=== PATIENT | female | born 1965 | race Caucasian/White ===

== ENCOUNTER 2016-03-29 08:38 | Emergency (ER) | payer MEDICAID, OTHER ==
[~2016-03-29] VITALS: Ht 167.6 cm; Wt 77.1 kg
[2016-03-29 08:49] VITALS: BP 140/75
--- NOTE | 2016-03-29 08:55 | NUR ---
Patient ambulated to bed 8.
--- NOTE | 2016-03-29 09:00 | NUR ---
PATIENT PRESENTS TO ED WITH LUQ PAIN X1 DAY, WORSENS UPON INSPIRATION, TOOK MOTRIN YESTERDYA WITH MINIMAL RELIEF . DENIES N/V/D; SKIN IS PINK/WARM/DRY; AAOX4 WITH EVEN AND STEADY GAIT; LUNGS CLEAR BL; HR EVEN AND REGULAR; PT DENIES ANY FEVER, CP, SOB, OR COUGH AT THIS TIME; PATIENT STATES PAIN OF 9/10 AT THIS TIME; VSS; PATIENT POSITIONED FOR COMFORT; HOB ELEVATED; BEDRAILS UP X2; BED DOWN. ER MD MADE AWARE OF PT STATUS.
--- NOTE | 2016-03-29 09:04 | NUR ---
Dr. Duarte evaluating patient at bedside.
[2016-03-29] MEDS ORDERED: ALUMINUM HYD/MAG/SIMETHICONE 30 ML, BELLADONNA/PHENOBARBITAL 10 ML, LIDOCAINE VISCOUS 2... PO ONE ×2 (09:10)
[2016-03-29 09:53] VITALS: BP 133/70
== END 2016-03-29 09:52 | disposition home or self-care (01) ==
LOC: MED 08:38
DX: R10.12 Left upper quadrant pain (principal)

== ENCOUNTER 2017-10-12 07:51 | Emergency (ER) | payer OTHER ==
[~2017-10-12] VITALS: Ht 167.6 cm; Wt 70.3 kg
[2017-10-12 07:52] VITALS: BP 122/62
--- NOTE | 2017-10-12 07:58 | NUR ---
PT AMBULATES TO BED 11
--- NOTE | 2017-10-12 08:19 | NUR ---
52 Y.O FEMALE BIB FOR PAIN TO THE NECK, SHOULDERS AND UPPER CHEST. SHE IS UNABLE TO MOVE NECK FREELY WITHOUT EXCESSIVE PAIN (/10), PAIN HAS OCCURED FOR 2 WEEKS. PT STATES ABOUT 3 YEARS AGO SHE WENT THROUGH THIS SAME PAIN, SHE WENT TO THE ED AT THE TIME AND THE DRVeronique SAID IT WAS DUE TO TENSION AND STRESS. PT DENIES ALL HX AND OTHER COMPLICATIONS. PT STATES SHE BELIEVES SHE IS OTHER [place] HEALTHY. THE PAIN HAS GOTTEN WORSE IN THE PAST 2 DAYS, THE PAIN IS WORSE IN THE MORNING AND THE NIGHT, THIS MORNING IT WOKE HER FROM HER SLEEP. PAIN ON PALPATION, NO VISIABLE SWELLING, SLIGHT REDDNESS ON LEFT SIDE OF NECK.
[2017-10-12] MEDS ORDERED: KETOROLAC 60 MG/2 ML VIAL IM ONE (08:45)
[2017-10-12] MEDS ORDERED: LORazepam 2 MG/ML VIAL IM ONE (08:45)
[2017-10-12 09:06] LABS: BARBITURATE, URINE NEG. ng/ml (NEG <=200); BENZODIAZEPINE, URINE NEG. ng/mL (NEG <=200); CANNABINOID, URINE NEG. ng/mL (NEG <=50); COCAINE, URINE NEG. ng/mL (NEG <=300); OPIATE, URINE NEG. ng/mL (NEG <=2000); PHENCYCLIDINE SCREEN,URINE NEG. ng/mL (NEG <=25)
[2017-10-12 10:25] VITALS: BP 122/62
--- NOTE | 2017-10-12 10:30 | NUR ---
PT DISCHAGED HOME WITH NIECE. PAIN HAS REDUCED TO A 5/10 AND PT STATES SHE IS VERY RELAXED AND FEELS BETTER. PT EDUCATION WAS REVIEWED AND ALL QUESTIONS ANSWERED.
== END 2017-10-12 10:30 | disposition home or self-care (01) ==
LOC: MED 07:51
DX: M43.6 Torticollis (principal); M47.892 Other spondylosis, cervical region; J45.909 Unspecified asthma, uncomplicated
CPT/HCPCS: 72040; 80305; 81002; 81025; 96372; 99285; J1885; J2060

== ENCOUNTER 2018-08-30 14:01 | Emergency (ER) | payer OTHER ==
[~2018-08-30] VITALS: Ht 167.6 cm; Wt 68.0 kg
[2018-08-30 14:12] VITALS: BP 128/69
--- NOTE | 2018-08-30 14:12 | NUR ---
Patient ambulated to bed 4. RN evaluating patient at bedside.
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
--- NOTE | 2018-08-30 15:00 | NUR ---
ERMD EVALUATING PT AT BEDSIDE
[2018-08-30] MEDS ORDERED: HYDROcodone/APAP 5/325 MG 1 TAB TAB PO ONE (15:05)
[2018-08-30] MEDS ORDERED: IBUPROFEN 800 MG TAB PO ONE (15:05)
[2018-08-30 16:04] VITALS: BP 128/69
--- NOTE | 2018-08-30 16:05 | NUR ---
Patient discharged with v/s stable. Written and verbal after care instructions given and explained. Patient alert, oriented and verbalized understanding of instructions. Ambulatory with steady gait. All questions addressed prior to discharge. ID band removed. Patient advised to follow up with PMD. Rx of NORCO AND IBUPROFEN given. Patient educated on indication of medication including possible reaction and side effects. Opportunity to ask questions provided and answered.
== END 2018-08-30 16:00 | disposition home or self-care (01) ==
LOC: MED 14:01
DX: M54.32 Sciatica, left side (principal); M25.552 Pain in left hip; J45.909 Unspecified asthma, uncomplicated
CPT/HCPCS: 81025; 99283

== ENCOUNTER 2019-01-26 15:44 | Emergency (ER) | payer OTHER ==
[~2019-01-26] VITALS: Ht 167.6 cm; Wt 77.1 kg
[2019-01-26 15:53] VITALS: BP 143/73
--- NOTE | 2019-01-26 16:00 | NUR ---
Note [email or web address] in EDM - 01/26/19 at 1600 by MARY ALEXIS CORLEY. SENT TO LOBBY WITH PARENT, AWAITING BED IN ED. VSS.
--- NOTE | 2019-01-26 16:00 | NUR ---
ALEXIS CORLEY. SENT TO LOB, AWAITING BED IN ED. VSS.
--- NOTE | 2019-01-26 18:50 | NUR ---
PATIENT LEFT WITHOUT BEING SEEN BY DR. NÚÑEZ. NO FURTHER CARE PROVIDED FOR PATIENT.
== END 2019-01-26 18:50 | disposition left against medical advice (07) ==
LOC: MED 15:44
DX: R00.2 Palpitations (principal); Z53.21 Procedure and treatment not carried out due to patient leaving prior to being seen by health care provider
CPT/HCPCS: 93005

== ENCOUNTER 2020-05-21 07:30 | Inpatient (IN) | payer OTHER, SELFPAY ==
[~2020-05-21] VITALS: Ht 167.6 cm; Wt 71.7 kg
[2020-05-21 07:33] VITALS: BP 121/81
--- NOTE | 2020-05-21 07:45 | NUR ---
PT AMBULATED TO BED 10.
--- NOTE | 2020-05-21 07:50 | NUR ---
X-RAY AT BEDSIDE.
--- NOTE | 2020-05-21 08:04 | NUR ---
ERMD AT BEDSIDE.
--- NOTE | 2020-05-21 08:20 | NUR ---
54 YEAR OLD FEMALE COMPLAINS OF SOB AND NONRADIATING CP X 2 MONTHS. PT LUNGS CLEAR BL, SPO2 89% ON RA. PT PLACED ON 4L NC, O2 SATURATION 96%. PT DENIES N/V/D. RR 20. PT AOX4, BREATHING EVEN AND UNLABORED, SKIN WARM AND DRY. BED IN LOWEST POSITION, LOCKED, BED RAIL UPX1. PMH - ASTHMA ALLERGIES - NKA
[2020-05-21 08:51] LABS: BASOPHILS % (AUTO) 0.4 % (0.0-2.0); EOSINOPHILS # (AUTO) 0.3 K/uL (0-0.4); EOSINOPHILS % (AUTO) 3.5 % (0.0-4.0); HEMATOCRIT 43.7 % (36-48); HEMOGLOBIN 14.5 g/dL (12.0-16.0); LYMPHOCYTES # (AUTO) 1.9 K/uL (2.5-16.5); LYMPHOCYTES % (AUTO) 24.2 % (20.5-51.1); MEAN CORPUSCULAR HEMOGLOBIN 28 pg (27-31); MEAN CORPUSCULAR HGB CONC 33 g/dL (33-37); MEAN CORPUSCULAR VOLUME 85.5 fL (80-94); MONOCYTES # (AUTO) 0.5 K/uL (0.8-1.0); MONOCYTES % (AUTO) 6.5 % (1.7-9.3); NEUTROPHILS % (AUTO) 65.4 % (42.2-75.2); PLATELET COUNT (AUTO) 372 K/uL (140-450); RED BLOOD CELL COUNT(AUTO) 5.11 MIL/uL (4.20-5.40); RED CELL DISTRIBUTION WIDTH 15.1 % (11.6-13.7); WHITE BLOOD COUNT (AUTO) 7.7 K/uL (4.8-10.8)
[2020-05-21] MEDS ORDERED: ALBU0.0912 INH (08:53)
[2020-05-21 09:11] LABS: PROTHROMBIN TIME 9.8 secs (10.8-13.4)
[2020-05-21 09:13] LABS: ALBUMIN 3.9 g/dL (3.4-5.0); CARBON DIOXIDE 27.8 mmol/L (21-32); CREATININE 0.7 mg/dL (0.6-1.3); POTASSIUM 3.8 mmol/L (3.5-5.1); TOTAL BILIRUBIN 0.3 mg/dL (0.0-1.0)
[2020-05-21 09:17] LABS: APPEARANCE,URINE SL CLOUDY (CLEAR); BILIRUBIN,URINE NEGATIVE (NEGATIVE); BLOOD, URINE TRACE-I (NEGATIVE); COLOR,URINE YELLOW (YELLOW); LEUKOCYTE ESTERASE ,URINE 1+ (NEGATIVE); NITRITE, URINE NEGATIVE (NEGATIVE); UGLUCOSE NEGATIVE (NEGATIVE)
[2020-05-21 09:22] LABS: D-DIMER < 100 ng/ml (0-400)
[2020-05-21 09:34] LABS: RBC,URINE 0-5 /HPF (0-5)
[2020-05-21 09:37] LABS: BARBITURATE, URINE NEGATIVE ng/ml (NEG <=200); BENZODIAZEPINE, URINE NEGATIVE ng/mL (NEG <=200); CANNABINOID, URINE NEGATIVE ng/mL (NEG <=50); COCAINE, URINE NEGATIVE ng/mL (NEG <=300); OPIATE, URINE NEGATIVE ng/mL (NEG <=2000); PHENCYCLIDINE SCREEN,URINE NEGATIVE ng/mL (NEG <=25)
--- NOTE | 2020-05-21 11:00 | NUR ---
PT ALERT AND AWAKE, BREATHING EVEN AND LABORED. SPO2 92% ON 4L.
[2020-05-21] MEDS ORDERED: AZITHROMYCIN 500 MG in DEXTROSE 5% 250 ML IV ONE (11:10)
--- NOTE | 2020-05-21 11:10 | NUR ---
KAVON SWAB COLLECTED AND SENT TO LAB.
[2020-05-21] MEDS ORDERED: cefTRIAXone 1,000 MG VIAL ONE (11:21)
--- NOTE | 2020-05-21 11:47 | NUR ---
NOVEL COVID SWAB SENT TO LAB
[2020-05-21] MEDS ORDERED: AZITHROMYCIN 500 MG INJ VIAL IV ONE (11:51)
--- NOTE | 2020-05-21 12:19 | NUR ---
PT ALERT AND AWAKE, BREATHING EVEN AND LABORED. SPO2 90% ON 4L.
--- NOTE | 2020-05-21 13:43 | NUR ---
PT ALERT AND AWAKE, BREATHING EVEN AND LABORED. SPO2 92% ON 4L.
[2020-05-21] MEDS ORDERED: HYDROCORTISONE 1% CRM 30 GM TUBE TP SCH (15:30)
[2020-05-21] MEDS ORDERED: MORPHINE SULFATE 2 MG/ML SYR IVP PRN (16:10)
[2020-05-21] MEDS ORDERED: ONDANSETRON 4 MG/2 ML VIAL IVP PRN (16:10)
[2020-05-21] MEDS ORDERED: ACETAMINOPHEN 325 MG TAB PO PRN (16:10)
--- NOTE | 2020-05-21 16:30 | NUR ---
PT ALERT AND AWAKE, BREATHING EVEN AND LABORED. SPO2 91% ON 4L.
[2020-05-21] MEDS: LEVOFLOXACIN 500 MG/D5W PREMIX 100 ML IV SCH (16:49)
--- NOTE | 2020-05-21 17:10 | NUR ---
PAGED ADMITTING DOCTOR ABOUT PT REQUEST FOR INHALER, STATES HAVING SOME CHEST TIGHTNESS
--- NOTE | 2020-05-21 17:54 | NUR ---
Patient will be admitted to care of Dr Reed. Admited to Tele. Will go to room 118. Belongings list completed. Report to Gaviota MURO.
--- NOTE | 2020-05-21 17:55 | NUR ---
REPORT RECEIVED FROM ER NURSE. AWAITING PT'S ARRIVAL
--- NOTE | 2020-05-21 18:10 | NUR ---
PT ARRIVED ON UNIT. PT EDUCATED ABOUT UNIT RULES AND PROTOCOLS. PT ORIENTED TO ROOM, BED CONTROLS, AND HOW TO REACH NURSE FOR ASSISTANCE. MRSA SWAB COLLECTED. PT PLACED ON ENHANCED CONTACT PRECAUTIONS.
--- NOTE | 2020-05-21 18:20 | NUR ---
PT COMPLAINS OF PAIN 8/10 ON UPPER ABDOMEN. SHE STATES SHE HAD GALL STONES BUT NEVER GOT THEM REMOVED AND CLAIMS THE BADOMEN PRESSURE IS WHAT MAKES HER HAVE SOB.
--- NOTE | 2020-05-21 18:26 | NUR ---
PRN MEDICATION GIVEN FOR PAIN MANAGEMENT. DISTRACTION AND MEDITATION WERE UNSUCCESSFUL. MEDICATIONS GIVEN PER MD ORDER. PT EDUCATED. PT VERBALIZED UNDERSTANDING. PT TOLERATED WELL. NO S/S OF DISTRESS AT THIS TIME. CALL LIGHT IS WITHIN REACH. ALL SAFETY MEASURES ARE IN PLACE. WILL CONTINUE TO MONITOR.
[2020-05-21 18:35] VITALS: BP 115/63
--- NOTE | 2020-05-21 18:48 | NUR ---
PT IS SITTING AT EDGE OF BED EATING DINNER REASSESSED FOR PAIN . PT STATES 0/10 PAIN AT THIS TIME. BLANKETS WERE GIVEN PER REQUEST. WILL ENDORSE TO ANALYTICAL ENGINEER FOR CONTINUITY OF CARE.
--- NOTE | 2020-05-21 19:30 | NUR ---
RECEIVED BEDSIDE ENDORSEMENT FROM AM SHIFT RN. PT IS AAOX4, ON 4L NC, O2 SAT WNL, SAFETY MEASURES IN PLACE. ISO PRECAUTION IN PLACE. PLAN OF CARE DISCUSSED, CALL LIGHT WITHIN REACH.
[2020-05-21 20:00] VITALS: BP 118/72
[2020-05-21] MEDS: ASPIRIN 81 MG TAB.CHEW PO SCH (20:40)
[2020-05-21] MEDS ORDERED: NITROGLYCERIN 0.4 MG TAB SL PRN (20:40)
[2020-05-21] MEDS ORDERED: ALUMINUM HYD/MAG/SIMETHICONE 30 ML UDC PO PRN (20:40)
[2020-05-21] MEDS ORDERED: ASPIRIN 81 MG TAB.CHEW PO SCH (20:40)
--- NOTE | 2020-05-21 21:10 | NUR ---
ASPIRIN 81MG PO GIVEN ORDERED, TOLERATED WELL.
--- NOTE | 2020-05-21 22:06 | NUR ---
MAALOX PO GIVEN ONCE PRN FOR GI UPSET, TOLERATED WELL. WILL CONTINUE TO MONITOR.
[2020-05-22] VITALS: BP 110/69
--- NOTE | 2020-05-22 | NUR ---
V/S TAKEN AND RECORDED, KEPT COMFORTABLE, CALL LIGHT WITHIN REACH.
--- NOTE | 2020-05-22 02:00 | NUR ---
ASLEEP, RESPIRATION EVEN AND UNLABORED, NO SOB, NO DISTRESS, CALL LIGHT WITHIN REACH.
[2020-05-22 04:00] VITALS: BP 93/55
--- NOTE | 2020-05-22 05:00 | NUR ---
CHECKED PT, KEPT WARM AND COMFORTABLE, CALL LIGHT WITHIN REACH.
[2020-05-22 06:39] LABS: BASOPHILS % (AUTO) 0.4 % (0.0-2.0); EOSINOPHILS # (AUTO) 0.3 K/uL (0-0.4); EOSINOPHILS % (AUTO) 4.6 % (0.0-4.0); HEMATOCRIT 42.4 % (36-48); HEMOGLOBIN 14.1 g/dL (12.0-16.0); LYMPHOCYTES # (AUTO) 1.9 K/uL (2.5-16.5); LYMPHOCYTES % (AUTO) 25.1 % (20.5-51.1); MEAN CORPUSCULAR HEMOGLOBIN 29 pg (27-31); MEAN CORPUSCULAR HGB CONC 33 g/dL (33-37); MEAN CORPUSCULAR VOLUME 86.2 fL (80-94); MONOCYTES # (AUTO) 0.4 K/uL (0.8-1.0); MONOCYTES % (AUTO) 5.5 % (1.7-9.3); NEUTROPHILS # (AUTO) 4.9 K/uL (1.8-7.7); NEUTROPHILS % (AUTO) 64.4 % (42.2-75.2); PLATELET COUNT (AUTO) 326 K/uL (140-450); RED BLOOD CELL COUNT(AUTO) 4.92 MIL/uL (4.20-5.40); RED CELL DISTRIBUTION WIDTH 15.4 % (11.6-13.7); WHITE BLOOD COUNT (AUTO) 7.6 K/uL (4.8-10.8)
[2020-05-22 06:59] LABS: CARBON DIOXIDE 26.8 mmol/L (21-32); CREATININE 0.8 mg/dL (0.6-1.3); POTASSIUM 3.8 mmol/L (3.5-5.1)
--- NOTE | 2020-05-22 07:38 | NUR ---
RECEIVED REPORT FROM NIGHT NURSE FOR CONTINUITY OF CARE. PT IS ON 4L NC. PT HAS LAC 20G SALINE LOCK, PT ON PUI PRECAUTIONS FOR COVID. SAFETY MEASURES IN PLACE, WILL CONTINUE TO MONITOR.
--- NOTE | 2020-05-22 07:38 | NUR ---
PT STABLE, NO DISTRESS, ALL NEEDS ATTENDED, KEPT COMFORTABLE, BEDSIDE ENDORSEMENT GIVEN TO AM SHIFT RN.
[2020-05-22 08:00] VITALS: BP 102/63
[2020-05-22] MEDS: ASPIRIN 81 MG TAB.CHEW PO SCH (09:32)
--- NOTE | 2020-05-22 09:36 | NUR ---
ADMINISTERED SCHEDULED MEDICATION, MEDICATION EDUCATION PROVIDED. PT TOLERATED WELL. INCREASED O2 TO 4L NC, PT STATING 89. NOTIFIED RT. WILL CONTINUE TO MONITOR
[2020-05-22] MEDS ORDERED: ALBU0.0912 INH (09:52)
--- NOTE | 2020-05-22 11:28 | NUR ---
ROUNDING ON PT. PT STABLE, PT SITTING IN BED. WILL CONTINUE TO MONITOR.
[2020-05-22 12:00] VITALS: BP 100/61
--- NOTE | 2020-05-22 13:40 | NUR ---
PT SITTING IN BED, PT IS STABLE, WILL CONTINUE TO MONITOR
--- NOTE | 2020-05-22 15:00 | NUR ---
PT RESTING IN BED, NO SIGNS OF DISTRESS NOTED, CALL LIGHT WITHIN REACH, WILL CONTINUE TO MONITOR
[2020-05-22 16:00] VITALS: BP 104/72
[2020-05-22] MEDS: LEVOFLOXACIN 500 MG/D5W PREMIX 100 ML IV SCH (16:55)
--- NOTE | 2020-05-22 17:00 | NUR ---
ADMINISTERED SCHEDULED MEDICATION, MEDICATION EDUCATION PROVIDED. PT TOLERATED WELL. PT IS STABLE, WILL CONTINUE TO MONITOR.
--- NOTE | 2020-05-22 19:05 | NUR ---
ENDORSE PT TO NIGHT NURSE FOR CONTINUITY OF CARE.
--- NOTE | 2020-05-22 19:06 | NUR ---
RECEIVED BEDSIDE ENDORSEMENT FROM AM SHIFT RN. PT IS AOX4, ON ROOM AIR, NO DISTRESS, DENIES PAIN, PT IS IN THE RESTROOM, ISO PRECAUTION IN PLACE, SAFETY MEASURES IN PLACE, PLAN OF CARE DISCUSSED, CALL LIGHT WITHIN REACH.
--- NOTE | 2020-05-22 19:45 | NUR ---
PT AWAKE AND ALERT PLAYING ON PHONE. PT DENIES SOB AND REQUESTED TO GO HOME STATING SHE IS OK. PT CURRENTLY ON RA SPO2 93% HR 87 WILL CONTINUE TO MONITOR
[2020-05-22 20:00] VITALS: BP 103/65
--- NOTE | 2020-05-22 21:00 | NUR ---
PT WANTED TO GO HOME. I EXPLAINED THAT SHE IS NOT YET MEDICALLY CLEARED BY AND THAT THERE'S NO D/C ORDER YET, PT STILL INSISTED INSPITE OF EXPLAINING TO HER THE RISKS AND BENEFITS. PAGED DR. STANLEY TO INFORM. THEN, CHARGE NURSE TAHIR, TALK TO THE PATIENT AND HE EXPLAINED THE RISKS AND BENEFITS AND THAT THERE'S NO D/C ORDER. FINALLY, PT DECIDED TO STAY FOR THE NIGHT. ALSO DR. STANLEY CALLED BACK, INFORMED HIM OF WHAT HAPPENED.
[2020-05-22] MEDS: guaiFENesin 600 MG TABER PO PRN (22:17)
--- NOTE | 2020-05-22 22:20 | NUR ---
PT GIVEN MUCINEX PRN FOR COUGH ORDERED, PT REQUESTED. CALL LIGHT WITHIN REACH.
[2020-05-23] VITALS: BP 102/72
--- NOTE | 2020-05-23 | NUR ---
PT WATCHING TV. CHECKED V/S, KEPT COMFORTABLE, NO SOB, CALL LIGHT WITHIN REACH.
--- NOTE | 2020-05-23 02:02 | NUR ---
CHECKED PT, FIXED THE NASAL CANNULA ON PT'S FACE, KEPT COMFORTABLE, CALL LIGHT WITHIN REACH.
--- NOTE | 2020-05-23 03:31 | NUR ---
PT LYING ON HER LEFT SIDE, O2 SAT 98%-99%, ON 3L, CALL LIGHT WITHIN REACH.
[2020-05-23 04:00] VITALS: BP 129/73
--- NOTE | 2020-05-23 05:30 | NUR ---
CHECKED PT, ASLEEP, CHEST RISE NOTED, O2 SAT 92% ON 3L.
--- NOTE | 2020-05-23 06:22 | NUR ---
PT REFUSED EKG AT THIS TIME. PT STATED SHE WOULD LIKE A FEMALE TO PERFORM EKG.
--- NOTE | 2020-05-23 06:46 | NUR ---
PATIENT HAS BEEN SCREENED AND CATEGORIZED MODERATE NUTRITION RISK. PATIENT WILL BE SEEN WITHIN 3-5 DAYS OF ADMISSION. 05/24/20-05/26/20 MITA LOO MS, RDN
--- NOTE | 2020-05-23 07:04 | NUR ---
PT STABLE, NO DISTRESS, ALL NEEDS ATTENDED, KEPT COMFORTABLE, BEDSIDE ENDORSEMENT GIVEN TO AM SHIFT RN FOR CONTINUITY OF CARE.
--- NOTE | 2020-05-23 07:05 | NUR ---
RECEIVED REPORT FROM NIGHT NURSE FOR CONTINUITY OF CARE. PT IS ON 3L NC. PT HAS LAC 20G SALINE LOCK. PT ASLEEP, NO SIGNS OF DISTRESS NOTED. PT ON PUI PRECAUTIONS FOR COVID. SAFETY MEASURES IN PLACE, WILL CONTINUE TO MONITOR.
[2020-05-23 08:00] VITALS: BP 118/63
[2020-05-23] MEDS: ASPIRIN 81 MG TAB.CHEW PO SCH (08:23)
[2020-05-23] MEDS: guaiFENesin 600 MG TABER PO PRN (08:24)
--- NOTE | 2020-05-23 08:30 | NUR ---
ADMINISTERED SCHEDULED MEDICATION, MEDICATION EDUCATION PROVIDED. ADMINISTERED MUCINEX FOR COUGH. PT TOLERATED WELL. PT IS STABLE, WILL CONTINUE TO MONITOR.
[2020-05-23] MEDS ORDERED: predniSONE 20 MG TAB PO SCH (09:00)
--- NOTE | 2020-05-23 11:17 | NUR ---
NOTIFIED DR STANLEY PT IS COMPLAINING OF STOMACH ACHE, RECEIVED TORB FOR KUB OF ABDOMEN, WILL INPUT ORDER.
--- NOTE | 2020-05-23 11:25 | NUR ---
PT SITTING IN THE BED, TALKING ON HER CELLPHONE. NO SIGNS OF DISTRESS NOTED, WILL CONTINUE TO MONITOR.
[2020-05-23 12:00] VITALS: BP 104/51
--- NOTE | 2020-05-23 14:15 | NUR ---
PT WANTS TO LEAVE AMA. NOTIFIED DR STANLEY. PER DR STANLEY PT CAN LEAVE BUT WILL EXPERIENCE RESPIRATORY DISTRESS AND WILL NEED TO BE RE-ADMITTED. SPOKE WITH PT AND ASKED HER WHY SHE WANTED TO LEAVE. PT STATES SHE CAN'T SLEEP, INFORMED HER SHE CAN ASK FOR SLEEP AIDE. PT STATES SHE WANTS TO LEAVE AND WANTS TO LEAVE AMA. INFORMED PT WHAT DR STANLEY SAID. PT STATES SHE STILL WANTS TO LEAVE AND WANTS TO SIGN FORM. WILL PRINT OUT FORM AND HAVE HER SIGN.
--- NOTE | 2020-05-23 14:37 | NUR ---
PT SIGNED AMA FORM. REMOVED IV AND INTACT. PT AMA OUT OF THE HOSPITAL
== END 2020-05-23 14:36 | disposition left against medical advice (07) | DRG 145 ==
LOC: MED 07:30 → MTU 16:09
PROVIDERS: ADMIT Hospitalist; ATTEND Hospitalist
DX: J20.9 Acute bronchitis, unspecified (principal); J45.21 Mild intermittent asthma with (acute) exacerbation; Z20.822 Contact with and (suspected) exposure to COVID-19; R10.9 Unspecified abdominal pain; F15.10 Other stimulant abuse, uncomplicated; Q25.72 Congenital pulmonary arteriovenous malformation; Z79.899 Other long term (current) drug therapy; Z91.09 Other allergy status, other than to drugs and biological substances; Z86.16 Personal history of COVID-19; R09.02 Hypoxemia
CPT/HCPCS: 36415; 71045; 71275; 74018; 80048; 80053; 80305; 81001; 83605; 83690; 83880; 84484; 85025; 85379; 85610; 87040; 87081; 87086; 93005; 96365; 96367; 99291; J0456; J0696; J1956; J2270; J7060; J7512; Q9967; U0003

== ENCOUNTER 2020-05-25 13:19 | Emergency (ER) | payer OTHER, SELFPAY ==
[~2020-05-25] VITALS: Ht 167.6 cm; Wt 68.0 kg
[~2020-05-25 13:19] MED LIST: ALBU0.0912 INH
[2020-05-25 13:25] VITALS: BP 118/75
--- NOTE | 2020-05-25 13:38 | NUR ---
C/O 11/05 LEFT WRIST PAIN X 2 DAYS. DENIES TRAUMA. TOOK PAIN PILL 45 MINS AGO. PMH:ASTHMA
--- NOTE | 2020-05-25 13:47 | NUR ---
PT TAKEN TO X RAY VIA W/C, ACCOMPANIED BY WINCH RUNNER.
--- NOTE | 2020-05-25 14:03 | NUR ---
PT AMB TO BED 4
[2020-05-25] MEDS ORDERED: KETOROLAC 30 MG/ML VIAL IM ONE (14:25)
[2020-05-25] MEDS ORDERED: NAPR-1847 PO (15:51)
--- NOTE | 2020-05-25 15:52 | NUR ---
applied wrist brace to left wrist without any issues
[2020-05-25 16:07] VITALS: BP 137/79
--- NOTE | 2020-05-25 16:08 | NUR ---
Patient discharged with v/s stable. Written and verbal after care instructions ABOUT [facility] FOR ROUTINE CARE OF INJURIES AND WRSIT SPRAIN given and explained IN [place]. Patient alert, oriented and verbalized understanding of instructions. Ambulatory with steady gait. All questions addressed prior to discharge. ID band removed. Patient advised to follow up with PMD. Rx of NAPROXEN given. Patient educated on indication of medication including possible reaction and side effects. Opportunity to ask questions provided and answered.
== END 2020-05-25 16:08 | disposition home or self-care (01) ==
LOC: MED 13:19
DX: M25.532 Pain in left wrist (principal); J45.909 Unspecified asthma, uncomplicated; Z79.899 Other long term (current) drug therapy
CPT/HCPCS: 29125; 73110; 93971; 96372; 99284; J1885

== ENCOUNTER 2020-06-09 07:56 | Inpatient (IN) | payer OTHER, SELFPAY ==
[~2020-06-09] VITALS: Ht 167.6 cm; Wt 75.7 kg
[~2020-06-09 07:56] MED LIST changes: +NAPR-1847 PO
[2020-06-09 08:01] VITALS: BP 130/58
[2020-06-09] MEDS ORDERED: MAG SULF 2000 MG/WATER PREMIX 50 ML IV ONE (08:20)
[2020-06-09] MEDS ORDERED: ALBUTEROL SULFATE/IPRATROPIU 3 ML SOL IH ONE ×2 (08:20→08:50)
--- NOTE | 2020-06-09 08:29 | NUR ---
54 Y/O F BIB SELF FROM HOME, PATIENT PRESENTS TO ED WITH SOB, CHEST PAIN AND COUGH THAT STARTED WORSENING TODAY. PT STATES SHE TESTED POSITIVE FOR COVID IN JANUARY AND TESTED NEGATIVE IN APRIL, BUT SINCE THEN HAS BEEN HAVING SOB MORE FREQUENTLY. DENIES N/V/D; SKIN IS PINK/WARM/DRY; AAOX4 WITH EVEN AND STEADY GAIT; LUNGS WHEEZING BL; HR EVEN AND REGULAR; PATIENT STATES PAIN OF 8/10 AT THIS TIME; VSS; PATIENT POSITIONED FOR COMFORT; HOB ELEVATED; BEDRAILS UP X2; BED DOWN. ER MD MADE AWARE OF PT STATUS. PMH: ASTHMA NKA MED: ALBUTEROL DOSE 0300 AND 0600 06/09/20
--- NOTE | 2020-06-09 08:46 | NUR ---
LABS COLLECTED THROUGH IV 20G AND GIVEN TO PHONG
[2020-06-09] MEDS ORDERED: cefTRIAXone 1,000 MG VIAL ONE (08:49)
[2020-06-09 08:52] LABS: BASOPHILS % (AUTO) 0.6 % (0.0-2.0); EOSINOPHILS # (AUTO) 0.7 K/uL (0-0.4); EOSINOPHILS % (AUTO) 7.9 % (0.0-4.0); HEMATOCRIT 42.9 % (36-48); HEMOGLOBIN 14.3 g/dL (12.0-16.0); LYMPHOCYTES % (AUTO) 23.2 % (20.5-51.1); MEAN CORPUSCULAR HEMOGLOBIN 29 pg (27-31); MEAN CORPUSCULAR HGB CONC 33 g/dL (33-37); MEAN CORPUSCULAR VOLUME 85.3 fL (80-94); MONOCYTES # (AUTO) 0.4 K/uL (0.8-1.0); MONOCYTES % (AUTO) 4.7 % (1.7-9.3); NEUTROPHILS # (AUTO) 5.6 K/uL (1.8-7.7); NEUTROPHILS % (AUTO) 63.6 % (42.2-75.2); PLATELET COUNT (AUTO) 387 K/uL (140-450); RED BLOOD CELL COUNT(AUTO) 5.03 MIL/uL (4.20-5.40); RED CELL DISTRIBUTION WIDTH 14.9 % (11.6-13.7); WHITE BLOOD COUNT (AUTO) 8.7 K/uL (4.8-10.8)
[2020-06-09 08:59] LABS: ANION GAP 14.5 (8-16); CARBON DIOXIDE 24.4 mmol/L (21-32); CREATININE 0.7 mg/dL (0.6-1.3); POTASSIUM 3.9 mmol/L (3.5-5.1)
--- NOTE | 2020-06-09 08:59 | NUR ---
CEFTRIAXONE AND MAGNESIUM NOT TESTED FOR COMPATIBILITY, WILL WAIT UNTIL INFUSION FINISHES.
[2020-06-09 09:05] LABS: ALBUMIN 3.7 g/dL (3.4-5.0); TOTAL BILIRUBIN 0.5 mg/dL (0.0-1.0)
--- NOTE | 2020-06-09 09:39 | NUR ---
NOVEL, KAVON AND MRSA SWABS OBTAINED AND TAKEN TO LAB. DROPPED OFF WITH PHLEB AT [employer] GAME TECHNICIAN.
[2020-06-09] MEDS ORDERED: MORPHINE SULFATE 4 MG/ML SYR IVP PRN (10:25)
[2020-06-09] MEDS ORDERED: HYDROcodone/APAP 5/325 MG 1 TAB TAB PO PRN (10:25)
[2020-06-09] MEDS ORDERED: MAG SULF 2000 MG/WATER PREMIX 50 ML IV PRN (10:25)
[2020-06-09] MEDS ORDERED: ACETAMINOPHEN 325 MG TAB PO PRN (10:25)
[2020-06-09] MEDS ORDERED: ONDANSETRON 4 MG/2 ML VIAL IVP PRN (10:25)
[2020-06-09] MEDS ORDERED: POTASSIUM CHLORIDE 10 MEQ TABER PO PRN (10:25)
[2020-06-09] MEDS ORDERED: KCL 20 MEQ/WATER INJ PREMIX 200 ML IV PRN (10:25)
[2020-06-09] MEDS ORDERED: MAGNESIUM OXIDE 400 MG TAB PO PRN (10:25)
--- NOTE | 2020-06-09 10:37 | NUR ---
Patient will be admitted to care of SELAM RODRIGUEZ. Admited to TELEMETRY. Will go to room 114. Belongings list completed. Report to WILLIAM MURO.
--- NOTE | 2020-06-09 10:50 | NUR ---
RECEIVED REPORT FROM ER NURSE FOR CONTINUITY OF CARE. PATIENT ARRIVES UNIT BY CHRIS. AAOX4. ABLE TO MAKE NEEDS KNOWN. IV TO LEFT AC INFUSING MAG RIDER. RESPIRATORY EVEN UNLABORED WITH 2L OXYGEN VIA NC. PATIENT DENIES PAIN AT THIS TIME. SKIN INTACT, WARM TO TOUCH. ORIENTED PATIENT TO THE CALL LIGHT AND ROOM. MRSA NARES COLLECTED. SAFETY MEASURES IN PLACE, WILL CONTINUE TO MONITOR.
[2020-06-09] MEDS: NACL 0.9% 1,000 ML IV SCH ×2 (11:00→22:55)
[2020-06-09] MEDS: AZITHROMYCIN 500 MG in DEXTROSE 5% 250 ML IV SCH (11:47)
[2020-06-09] MEDS: methylPREDNISolone SS 40 MG/ML VIAL IVP SCH ×2 (11:55→17:30)
[2020-06-09] MEDS: ALBUTEROL SULFATE/IPRATROPIU 3 ML SOL IH SCH ×2 (13:59→19:33)
--- NOTE | 2020-06-09 14:00 | NUR ---
UA SPECIMEN COLLECTED AND DELIVERED TO LAB.
[2020-06-09 14:16] LABS: APPEARANCE,URINE CLEAR (CLEAR); BILIRUBIN,URINE NEGATIVE (NEGATIVE); BLOOD, URINE NEGATIVE (NEGATIVE); COLOR,URINE YELLOW (YELLOW); LEUKOCYTE ESTERASE ,URINE NEGATIVE (NEGATIVE); NITRITE, URINE NEGATIVE (NEGATIVE); UGLUCOSE NEGATIVE (NEGATIVE)
[2020-06-09 16:00] VITALS: BP 111/56
--- NOTE | 2020-06-09 17:30 | NUR ---
SOLU MEDROL GIVEN VIA IVP. PATIENT'S O2 SAT 94% WITH 2L OXYGEN VIA NC, HR 79. DENIES PAIN OR DISCOMFORT AT THIS TIME.
--- NOTE | 2020-06-09 19:28 | NUR ---
ENDORSED PATIENT TO SOFTWARE SYSTEMS ARCHITECT RN FOR CONTINUITY OF CARE. PATIENT IN STABLE CONDITION WITH 2L OXYGEN VIA NC.
--- NOTE | 2020-06-09 19:29 | NUR ---
RECEIVING PATIENT FROM AM NURSE FOR CONTINUITY OF CARE. PATIENT IS IN TELE MONITOR. A/A/O X4. RESPIRATORY EVEN AND UNLABORED, ON 2L OXYGEN VIA NC, O2 SAT 94%. NO SIGN OF DISTRESS NOTED. SKIN WARM, DRY, NON-DIAPHORETIC. IV ON LEFT AC 20G, IS INFUSING FLUID. PATIENT DENIES ANY PAIN OR DISCOMFORT. ABLE TO MAKE NEEDS KNOWN. PLAN OF CARE DISCUSSED. PRECAUTION IN PLACE. CALL LIGHT WITHIN REACH. WILL CONTINUE TO MONITOR.
[2020-06-09] MEDS: BUDESONIDE 0.5 MG/2 ML NEBU INH SCH (19:34)
--- NOTE | 2020-06-09 19:53 | NUR ---
PT TOLERATED TXS WELL- NO DISTRESS NOTED
[2020-06-09 20:00] VITALS: BP 127/77
--- NOTE | 2020-06-09 20:00 | NUR ---
VITAL SIGNS TAKEN BP 127/77, HR 93, TEMP 98.3, RR 18, O2 SAT 92%. PATIENT IS STABLE, DENIES ANY PAIN OR DISCOMFORT. CALL LIGHT WITHIN REACH. HOB ELEVATED. WILL CONTINUE TO MONITOR.
--- NOTE | 2020-06-09 22:00 | NUR ---
ROUND CHECK. PATIENT IS USING HER CELL PHONE IN BED. NO SIGN OF DISTRESS NOTED. CALL LIGHT WITHIN REACH. HOB ELEVATED. PRECAUTION IN PLACE. WILL CONTINUE TO MONITOR.
[2020-06-10] VITALS: BP 112/72
[2020-06-10] MEDS: methylPREDNISolone SS 40 MG/ML VIAL IVP SCH ×4 (00:09→17:38)
--- NOTE | 2020-06-10 00:09 | NUR ---
SCHEDULE MEDICATION GIVEN ORDERED. PATIENT TOLERATED WELL. NO SIGN OF DISTRESS NOTED. HOB ELEVATED. PRECAUTION IN PLACE. CALL LIGHT WITHIN REACH. WILL CONTINUE TO MONITOR.
--- NOTE | 2020-06-10 02:00 | NUR ---
ROUND CHECK. PATIENT IS SLEEPING, CHEST RISE AND FALL NOTED. NO SIGN OF RESPIRATORY DISTRESS. PRECAUTION IN PLACE. CALL LIGHT WITHIN REACH. WILL CONTINUE TO MONITOR.
[2020-06-10] MEDS: ALBUTEROL SULFATE/IPRATROPIU 3 ML SOL IH SCH ×4 (02:51→19:15)
[2020-06-10 04:00] VITALS: BP 121/69
--- NOTE | 2020-06-10 04:04 | NUR ---
PATIENT IS AWAKE, RESTING IN BED. NO SIGN OF DISTRESS NOTED. O2 SAT 93%. PRECAUTION IN PLACE. CALL LIGHT WITHIN REACH. WILL CONTINUE TO MONITOR.
--- NOTE | 2020-06-10 05:34 | NUR ---
SCHEDULE MEDICATION GIVEN ORDERED. EDUCATION GIVEN, PATIENT VERBALIZED UNDERSTANDING. NO RESPIRATORY DISTRESS NOTED. PRECAUTION IN PLACE. CALL LIGHT WITHIN REACH. WILL CONTINUE TO MONITOR.
--- NOTE | 2020-06-10 06:06 | NUR ---
WAREHOUSE GENERAL LABORER AT BEDSIDE FOR BLOOD DRAWN. PATIENT IS AWAKE, NO SIGN OF RESPIRATORY DISTRESS NOTED, O2 SAT 97% ON 2L OXYGEN VIA NC. WILL CONTINUE TO MONITOR.
[2020-06-10 06:36] LABS: HEMATOCRIT 41.5 % (36-48); HEMOGLOBIN 13.5 g/dL (12.0-16.0); LYMPHOCYTES # (AUTO) 0.8 K/uL (2.5-16.5); LYMPHOCYTES % (AUTO) 5.3 % (20.5-51.1); MEAN CORPUSCULAR HEMOGLOBIN 28 pg (27-31); MEAN CORPUSCULAR HGB CONC 33 g/dL (33-37); MEAN CORPUSCULAR VOLUME 86.1 fL (80-94); MONOCYTES # (AUTO) 0.2 K/uL (0.8-1.0); MONOCYTES % (AUTO) 1.1 % (1.7-9.3); NEUTROPHILS % (AUTO) 93.6 % (42.2-75.2); PLATELET COUNT (AUTO) 371 K/uL (140-450); RED BLOOD CELL COUNT(AUTO) 4.82 MIL/uL (4.20-5.40)
--- NOTE | 2020-06-10 07:13 | NUR ---
ENDORSED PATIENT TO AM NURSE FOR CONTINUITY OF CARE. PATIENT IS STABLE, NO SIGN OF DISTRESS NOTED.
--- NOTE | 2020-06-10 07:15 | NUR ---
RECEIVED PATIENT FROM NIGHT NURSE. PATIENT IN BED AWAKE, ALERT, AND ORIENTED X4. TALKING ON CELL PHONE. RESP EVEN AND UNLABORED ON 2L NC. DENIED OF PAIN AT THIS TIME. LAC 20G INFUSING NS 80ML/HR. PLAN OF CARE DISCUSSED, PATIENT VERBALIZED UNDERSTANDING. HOB ELEVATED. SAFETY MEASURES IN PLACE. WILL CONTINUE TO MONITOR.
[2020-06-10 07:19] LABS: ALBUMIN 3.6 g/dL (3.4-5.0); ANION GAP 11.8 (8-16); CARBON DIOXIDE 26.7 mmol/L (21-32); CREATININE 0.6 mg/dL (0.6-1.3); MAGNESIUM 2.2 mg/dL (1.8-2.4); POTASSIUM 4.5 mmol/L (3.5-5.1); TOTAL BILIRUBIN 0.3 mg/dL (0.0-1.0)
[2020-06-10] MEDS: BUDESONIDE 0.5 MG/2 ML NEBU INH SCH ×2 (07:28→20:18)
[2020-06-10 08:00] VITALS: BP 118/77
--- NOTE | 2020-06-10 09:05 | NUR ---
PATIENT HAS BEEN SCREENED AND CATEGORIZED LOW NUTRITION RISK. PATIENT WILL BE SEEN WITHIN 7 DAYS OF ADMISSION. 06/15/[address]
[2020-06-10] MEDS: DOCUSATE SODIUM 100 MG GELCAP PO SCH (09:19)
--- NOTE | 2020-06-10 09:30 | NUR ---
PATIENT SITTING UP IN BED WATCHING TV. MORNING ROUTINE MEDICATIONS GIVEN WITH TYLENOL FOR MILD HEADACHE. FLUIDS ENCOURAGED. RESP EVEN AND UNLABORED ON 4L NC, O2SAT 94%. LAC 20G INFUSING WELL. ABLE TO MAKE NEEDS KNOWN. AMBULATORY. PLAN OF CARE DISCUSSED, PATIENT VERBALIZED UNDERSTANDING. CALL LIGHT WITHIN REACH. WILL CONTINUE TO MONITOR.
--- NOTE | 2020-06-10 10:59 | NUR ---
DC PLANNIN YRS OLD FEMALE PATIENT WAS ADMITTED FROM HOME WITH A DX OF ASTHMA EXACERBATION. PT HAS A HX OF METH USE. CXR SHOWED NO RADIOGRAPHICALLY ACUTE CARDIOPULMONARY DISEASE. RAPID COVID TEST NEGATIVE PCR IS PENDING. ON O2 4L/NC SATING 94 % ADMINISTER IVF, IV ABX AZITHROMYCIN , SOLU-MEDROL AND BREATHING TREATMENT. CONSULTED WITH [facility]. DC PLAN TO GO HOME WHEN STABLE CM TO FOLLOW Addendum: 06/11/20 at 0903 by Sophia Hedrick DC SAFETY ENGINEER [employer]: FAXED ORDER FOR HOME O2 TO [facility]. WILL FOLLOW UP Addendum: 06/11/20 at 1010 by Sophia Hedrick DC SAFETY ENGINEER [employer]: RECEIVED A CALL FROM HUY AT [facility] THEY RECEIVED ORDER AND WILL DELIVER TO BEDSIDE. OCTAVIA FROM [facility] PROVIDED AUTH [id number]. Addendum: 06/11/20 at 1015 by Sophia Hedrick CM MARTHA KEITH: HOME O2 WILL BE DELIVERED TO BEDSIDE BETWEEN 12:00PM-1:00 PM
[2020-06-10] MEDS: NACL 0.9% 1,000 ML IV SCH ×2 (11:15→23:55)
[2020-06-10] MEDS: AZITHROMYCIN 500 MG in DEXTROSE 5% 250 ML IV SCH (11:15)
[2020-06-10 12:00] VITALS: BP 108/60
--- NOTE | 2020-06-10 12:43 | NUR ---
PATIENT SITTING BY BEDSIDE EATING LUNCH. RESP EVEN AND UNLABORED ON 3LNC, TITRATED DOWN FROM 4L NC, O2SAT 92%. PATIENT IN GOOD SPIRIT. NO ACUTE S/S DISTRESS. CALL LIGHT WITHIN REACH. WILL CONTINUE TO MONITOR.
[2020-06-10 16:00] VITALS: BP 117/56
--- NOTE | 2020-06-10 16:36 | NUR ---
PATIENT AMBULATED FROM THE BATHROOM TO BED WITH STEADY GAIT. O2SAT DECREASED TO 88% BUT INCREASED TO 94% WHEN AT REST. CONTINUE ON 3L VIA NC. PATIENT DENIED OF ANY SOB DURING AMBULATION. NO PAIN AT THIS TIME. CALL LIGHT WITHIN REACH. WILL CONTINUE TO MONITOR.
--- NOTE | 2020-06-10 18:12 | NUR ---
PATIENT IN BED WATCHING TV, RESP EVEN AND UNLABORED ON 3L NC, O2SAT 92%. DENIED OF PAIN AT THIS TIME. CALL LIGHT WITHIN REACH. WILL CONTINUE TO MONITOR.
--- NOTE | 2020-06-10 19:10 | NUR ---
ENDORSED PATIENT TO NIGHT NURSE. PATIENT IN STABLE CONDITION.
--- NOTE | 2020-06-10 19:11 | NUR ---
RECEIVING PATIENT FROM AM NURSE FOR CONTINUITY OF CARE. PATIENT SEEN WATCHING TV WITH HOB ELEVATED. PATIENT IS ON TELE MONITOR. A/A/O X4. RESPIRATORY EVEN AND UNLABORED, ON 3L OXYGEN VIA NC, NO SIGN OF DISTRESS NOTED. SKIN WARM, DRY, NON-DIAPHORETIC. IV ON LEFT AC 20G, IS INFUSING FLUID. PATIENT DENIES ANY PAIN OR DISCOMFORT. ABLE TO MAKE NEEDS KNOWN. PLAN OF CARE DISCUSSED, PATIENT VERBALIZED UNDERSTANDING. PRECAUTION IN PLACE. CALL LIGHT WITHIN REACH. WILL CONTINUE TO MONITOR.
[2020-06-10 20:00] VITALS: BP 132/74
--- NOTE | 2020-06-10 21:30 | NUR ---
DELIVERED PATIENT'S STUFF FROM HER DROPPED IT AT LOBBY.
--- NOTE | 2020-06-10 22:00 | NUR ---
ROUND CHECK. PATIENT IS SLEEPING. CHEST RISE AND FALL NOTED. AROUSABLE TO VOICE. CALL LIGHT WITHIN REACH. WILL CONTINUE TO MONITOR.
--- NOTE | 2020-06-10 23:00 | NUR ---
PCR RESULT NEGATIVE. WILL REMOVE ISOLATION PRECAUTION.
[2020-06-11] VITALS: BP 113/61
--- NOTE | 2020-06-11 00:53 | NUR ---
PATIENT REFUSED SOLU-MEDROL SCHEDULE. PATIENT REPORT HAD PALPITATION DURING THE DAY AFTER SOLU-MEDROL ADMINISTER. EDUCATION GIVEN, PATIENT VERBALIZED UNDERSTANDING AND STILL REFUSED MEDICATION. PATIENT IS A/A/O X4. NO SIGN OF DISTRESS NOTED. HOB ELEVATED. CALL LIGHT WITHIN REACH. WILL CONTINUE TO MONITOR.
--- NOTE | 2020-06-11 01:00 | NUR ---
INSTRUCTED PT ON INCENTIVE SPIROMETER USE, PT WAS ABLE TO DEMONSTRATE USE PROPERLY. GIVEN BREATHING TREATMENT AT THIS TIME , PT TOLERATED WELL, CONTINUES TO HAVE SATURATIONS IN THE 90'S ON 3 LPM NASAL CANNULA, [place] CONTINUE TO MONITOR
[2020-06-11] MEDS: ALBUTEROL SULFATE/IPRATROPIU 3 ML SOL IH SCH ×2 (01:13→07:00)
--- NOTE | 2020-06-11 03:21 | NUR ---
ROUND CHECK. PATIENT IS SLEEPING. NO SIGN OF DISTRESS NOTED. O2 SAT 93%. HOB ELEVATED. CALL LIGHT WITHIN REACH. WILL CONTINUE TO MONITOR.
[2020-06-11 04:00] VITALS: BP 112/63
--- NOTE | 2020-06-11 04:00 | NUR ---
ROUND CHECK. PATIENT IS SLEEPING. CHEST RISE AND FALL NOTED. NO SIGN OF DISTRESS. HOB ELEVATED. CALL LIGHT WITHIN REACH. WILL CONTINUE TO MONITOR.
[2020-06-11] MEDS: methylPREDNISolone SS 40 MG/ML VIAL IVP SCH ×3 (06:00→11:20)
[2020-06-11 06:11] LABS: HEMOGLOBIN 12.6 g/dL (12.0-16.0); LYMPHOCYTES # (AUTO) 1.9 K/uL (2.5-16.5); LYMPHOCYTES % (AUTO) 9.6 % (20.5-51.1); MEAN CORPUSCULAR HEMOGLOBIN 28 pg (27-31); MEAN CORPUSCULAR HGB CONC 32 g/dL (33-37); MEAN CORPUSCULAR VOLUME 87.2 fL (80-94); MONOCYTES # (AUTO) 0.8 K/uL (0.8-1.0); MONOCYTES % (AUTO) 3.8 % (1.7-9.3); NEUTROPHILS # (AUTO) 17.6 K/uL (1.8-7.7); NEUTROPHILS % (AUTO) 86.6 % (42.2-75.2); PLATELET COUNT (AUTO) 378 K/uL (140-450); RED BLOOD CELL COUNT(AUTO) 4.48 MIL/uL (4.20-5.40); RED CELL DISTRIBUTION WIDTH 15.2 % (11.6-13.7); WHITE BLOOD COUNT (AUTO) 20.3 K/uL (4.8-10.8)
--- NOTE | 2020-06-11 06:11 | NUR ---
PATIENT REFUSED SCHEDULE SOLU-MEDROL. EDUCATION GIVEN, PATIENT VERBALIZED UNDERSTANDING. PATIENT A/A/O X4, CALM AND COOPERATIVE. NO SIGN OF DISTRESS NOTED. CALL LIGHT WITHIN REACH. WILL CONTINUE TO MONITOR.
[2020-06-11 06:27] LABS: ALBUMIN 3.5 g/dL (3.4-5.0); ANION GAP 11.3 (8-16); CARBON DIOXIDE 26.5 mmol/L (21-32); CREATININE 0.7 mg/dL (0.6-1.3); MAGNESIUM 2.3 mg/dL (1.8-2.4); POTASSIUM 3.8 mmol/L (3.5-5.1); TOTAL BILIRUBIN 0.2 mg/dL (0.0-1.0)
--- NOTE | 2020-06-11 07:15 | NUR ---
ENDORSED PATIENT TO AM NURSE FOR CONTINUITY OF CARE. PATIENT IS STABLE.
[2020-06-11] MEDS: BUDESONIDE 0.5 MG/2 ML NEBU INH SCH (07:30)
--- NOTE | 2020-06-11 07:39 | NUR ---
PT RECEIVED FROM SUPERINTENDENT TRANSMISSION NURSE. PT RESTING IN BED.ON 3L NC AT 96% l AC 20G IS DRY CLEAN AND INTACT. NO S/S OF DISTRESS ALL SAFETY MEASURES ARE IN PLACE. PT IS ABLE TO MAKE NEEDS KNOWN . CALL LIGHT IS WITHIN REACH. WILL CONTINUE TO MONITOR.
[2020-06-11 08:00] VITALS: BP 116/70
[2020-06-11] MEDS: DOCUSATE SODIUM 100 MG GELCAP PO SCH (09:00)
--- NOTE | 2020-06-11 09:28 | NUR ---
COLACE HELD PT REFUSED. CLAIMED HAD 2 LOOSE STOOLS. NO S/S OF DISTRESS ALL SAFETY MEASURES ARE IN PLACE. PT IS ABLE TO MAKE NEEDS KNOWN . CALL LIGHT IS WITHIN REACH. WILL CONTINUE TO MONITOR.
[2020-06-11] MEDS: AZITHROMYCIN 500 MG in DEXTROSE 5% 250 ML IV SCH (11:36)
--- NOTE | 2020-06-11 11:37 | NUR ---
MEDICATIONS GIVEN PER MD ORDER. PT EDUCATED. VERBALIZED UNDERSTANDING. NO S/S OF DISTRESS ALL SAFETY MEASURES ARE IN PLACE. PT IS ABLE TO MAKE NEEDS KNOWN . CALL LIGHT IS WITHIN REACH. WILL CONTINUE TO MONITOR.
[2020-06-11 12:00] VITALS: BP 124/69
--- NOTE | 2020-06-11 12:19 | NUR ---
PT RESTING IN BED. ON ROOM AIR 93% PT TOLERATING WELL. NO S/S OF DISTRESS AT THIS TIME ALL SAFETY MEASURES ARE IN PLACE.
[2020-06-11] MEDS: NACL 0.9% 1,000 ML IV SCH (12:45)
[2020-06-11] MEDS ORDERED: PRED20TA5 PO (13:29)
--- NOTE | 2020-06-11 14:43 | NUR ---
PT DISCHARGE EDUCATION DONE FOR CONTINUITY OF CARE. PT EDUCATED AND VERBALIZED UNDERSTANDING. IV REMOVED CANULA INTACT. PT DRESSED INDEPENDENTLY . MONITOR OFF AND RETURNED TO TELE. PT EDUCATED ON HOME USE. PT VERBALIZED UNDERSTANDING. PT WRIST BANDS REMOVED AND AWAITS RIDE. WILL CONTINUE TO MONITOR
--- NOTE | 2020-06-11 15:05 | NUR ---
PT LEFT VIA WHEELCHAIR. PT AMBULATED TO HER PRIVATE VEHICLE AND LEFT IN STABLE CONDITION.
[2020-06-12] MEDS ORDERED: ALBU0.0912 INH (02:03)
[2020-06-12] MEDS ORDERED: OMEP40EC24 PO (02:03)
[2020-06-12] MEDS ORDERED: PRED20TA5 PO (02:03)
== END 2020-06-11 15:00 | disposition home or self-care (01) | DRG 133 ==
LOC: MED 07:56 → MTU 10:27
PROVIDERS: ADMIT Hospitalist; ATTEND Hospitalist
DX: J96.01 Acute respiratory failure with hypoxia (principal); J45.901 Unspecified asthma with (acute) exacerbation; Z20.822 Contact with and (suspected) exposure to COVID-19; D72.829 Elevated white blood cell count, unspecified; Z79.899 Other long term (current) drug therapy
CPT/HCPCS: 36415; 71045; 80053; 81003; 83605; 83735; 84484; 85025; 85379; 87040; 87081; 87086; 93005; 94640; 96365; 96368; 99285; J0456; J0696; J2920; J3475; J7030; J7060; J7626; U0003

== ENCOUNTER 2020-06-12 00:31 | Emergency (ER) | payer OTHER, SELFPAY ==
[~2020-06-12] VITALS: Ht 167.6 cm; Wt 72.6 kg
[~2020-06-12 00:31] MED LIST changes: -NAPR-1847 PO; +PRED20TA5 PO
[2020-06-12 00:36] VITALS: BP 122/71
--- NOTE | 2020-06-12 00:39 | NUR ---
TO LOBBY A/W BED AMBULATORY
[2020-06-12 01:20] LABS: BASOPHILS % (AUTO) 0.3 % (0.0-2.0); EOSINOPHILS # (AUTO) 0.1 K/uL (0-0.4); EOSINOPHILS % (AUTO) 1.1 % (0.0-4.0); HEMATOCRIT 40.7 % (36-48); HEMOGLOBIN 13.2 g/dL (12.0-16.0); LYMPHOCYTES # (AUTO) 3.5 K/uL (2.5-16.5); LYMPHOCYTES % (AUTO) 29.6 % (20.5-51.1); MEAN CORPUSCULAR HEMOGLOBIN 28 pg (27-31); MEAN CORPUSCULAR HGB CONC 33 g/dL (33-37); MEAN CORPUSCULAR VOLUME 86.2 fL (80-94); MONOCYTES # (AUTO) 0.6 K/uL (0.8-1.0); MONOCYTES % (AUTO) 5.1 % (1.7-9.3); NEUTROPHILS # (AUTO) 7.5 K/uL (1.8-7.7); NEUTROPHILS % (AUTO) 63.9 % (42.2-75.2); PLATELET COUNT (AUTO) 378 K/uL (140-450); RED BLOOD CELL COUNT(AUTO) 4.73 MIL/uL (4.20-5.40); RED CELL DISTRIBUTION WIDTH 15.3 % (11.6-13.7); WHITE BLOOD COUNT (AUTO) 11.7 K/uL (4.8-10.8)
--- NOTE | 2020-06-12 01:27 | NUR ---
LINUX PROGRAMMER AT BEDSIDE FOR BLOOD DRAW.
[2020-06-12 01:36] LABS: ALBUMIN 3.4 g/dL (3.4-5.0); ANION GAP 9.1 (8-16); CARBON DIOXIDE 32.2 mmol/L (21-32); CREATININE 0.7 mg/dL (0.6-1.3); POTASSIUM 3.3 mmol/L (3.5-5.1); TOTAL BILIRUBIN 0.2 mg/dL (0.0-1.0)
--- NOTE | 2020-06-12 01:56 | NUR ---
ER MD DR. YOU AT BEDSIDE EVALUATING PT.
[2020-06-12] MEDS ORDERED: DICYCLOMINE HCL LIQUID 20 MG, ALUMINUM HYD/MAG/SIMETHICONE 30 ML, LIDOCAINE VISCOUS 2% ... PO ONE ×3 (02:00)
[2020-06-12] MEDS ORDERED: OMEP40EC24 PO (02:03)
[2020-06-12] MEDS ORDERED: ALBU0.0912 INH (02:03)
[2020-06-12] MEDS ORDERED: PRED20TA5 PO (02:03)
[2020-06-12] MEDS ORDERED: LIDOCAINE VISCOUS 2% 20 ML UDC ONE (02:10)
[2020-06-12] MEDS ORDERED: ALUMINUM HYD/MAG/SIMETHICONE 30 ML UDC ONE (02:10)
[2020-06-12] MEDS ORDERED: DICYCLOMINE HCL LIQUID 10 MG/5 ML UDC ONE (02:10)
--- NOTE | 2020-06-12 02:36 | NUR ---
Patient discharged with v/s stable. Written and verbal after care instructions given and explained. Patient alert, oriented and verbalized understanding of instructions. Ambulatory with steady gait. All questions addressed prior to discharge. ID band removed. Patient advised to follow up with PMD. Rx of ALBUTEROL, OMEPRAZOLE, & PREDNISONE given. Patient educated on indication of medication including possible reaction and side effects. Opportunity to ask questions provided and answered.
[2020-06-12 02:48] VITALS: BP 118/78
== END 2020-06-12 02:36 | disposition home or self-care (01) ==
LOC: MED 00:31
DX: R10.13 Epigastric pain (principal); J45.909 Unspecified asthma, uncomplicated; Z79.899 Other long term (current) drug therapy
CPT/HCPCS: 36415; 80053; 83690; 85025; 99283

== ENCOUNTER 2020-09-15 05:09 | Emergency (ER) | payer OTHER, SELFPAY ==
[~2020-09-15] VITALS: Ht 167.6 cm; Wt 71.7 kg
[~2020-09-15 05:09] MED LIST changes: +OMEP40EC24 PO
[2020-09-15 05:18] VITALS: BP 119/73
--- NOTE | 2020-09-15 05:23 | NUR ---
to bed 2 ambulatory
--- NOTE | 2020-09-15 05:24 | NUR ---
Amanuel jones in [facility] - 09/15/20 at 0525 by REGULO to bed 3 ambulatory
--- NOTE | 2020-09-15 05:26 | NUR ---
PATIENT TO BATHROOM FOR URINE COLLECTION
--- NOTE | 2020-09-15 05:30 | NUR ---
PT. IS A 54 Y/O FEMALE THAT CAME INTO ED WITH C/O OF RIGHT SHOULDER PAIN. PT. 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 RATES PAIN 8/10 ON THE PAIN SCALE AT THIS TIME. DENIES TRAUMA/FALL. PT. GUARDING ARM AND WHEN ASKED TO DO RANGE OF MOTION, SHE STATES "I CAN'T." DENIES N/V/D; SKIN IS PINK/WARM/DRY; AAOX4 WITH EVEN AND STEADY GAIT; HR EVEN AND REGULAR; PT DENIES ANY FEVER, CP, SOB, OR COUGH AT THIS TIME; VSS; PATIENT POSITIONED FOR COMFORT; HOB ELEVATED; BEDRAILS UP X1; BED DOWN. ER MD MADE AWARE OF PT STATUS.
--- NOTE | 2020-09-15 05:32 | NUR ---
Dr. Kelly examining patient.
[2020-09-15] MEDS ORDERED: ACET-10509 PO (05:42)
[2020-09-15] MEDS ORDERED: NAPR-54 PO (05:42)
--- NOTE | 2020-09-15 05:45 | NUR ---
NO NURSING INTERVENTIONS NEEDED.
[2020-09-15 05:50] VITALS: BP 119/73
--- NOTE | 2020-09-15 05:50 | NUR ---
Patient discharged with v/s stable. Written and verbal after care instructions given and explained. Patient alert, oriented and verbalized understanding of instructions. Ambulatory with steady gait. All questions addressed prior to discharge. ID band removed. Patient advised to follow up with PMD. Rx of TYLENOL EXTRA STRENGTH AND NAPROSYN given. Patient educated on indication of medication including possible reaction and side effects. Opportunity to ask questions provided and answered.
== END 2020-09-15 05:50 | disposition home or self-care (01) ==
LOC: MED 05:09
DX: S46.001A Unspecified injury of muscle(s) and tendon(s) of the rotator cuff of right shoulder, initial encounter (principal); J45.909 Unspecified asthma, uncomplicated; Z79.899 Other long term (current) drug therapy; X58.XXXA Exposure to other specified factors, initial encounter; Y93.89 Activity, other specified; Y92.89 Other specified places as the place of occurrence of the external cause; Y99.8 Other external cause status
CPT/HCPCS: 99282

== ENCOUNTER 2021-10-16 16:28 | Emergency (ER) | payer OTHER ==
[~2021-10-16] VITALS: Ht 167.6 cm; Wt 79.8 kg
[~2021-10-16 16:28] MED LIST changes: +ACET-10509 PO; +NAPR-54 PO
[2021-10-16 16:32] VITALS: BP 145/118
--- NOTE | 2021-10-16 16:36 | NUR ---
Amanuel jones in [facility] - 10/16/21 at 1637 by [id number] PARVIN
[2021-10-16] MEDS ORDERED: KETOROLAC 30 MG/ML VIAL IM ONE (16:50)
--- NOTE | 2021-10-16 17:45 | NUR ---
Amanuel jones in [facility] - 10/16/21 at 1822 by [email or web address] PATIENT ELOPED FROM FACILITY. DISCHARGE INSTRUCTIONS NOT GIVEN TO PATIENT. DR. MOREL NOTIFIED.
--- NOTE | 2021-10-16 18:16 | NUR ---
PATIENT ELOPED FROM FACILITY. DISCHARGE INSTRUCTIONS NOT GIVEN TO PATIENT. NOTIFIED.
== END 2021-10-16 18:16 | disposition left against medical advice (07) ==
LOC: MED 16:28
DX: M79.644 Pain in right finger(s) (principal); J45.909 Unspecified asthma, uncomplicated; Z79.1 Long term (current) use of non-steroidal anti-inflammatories (NSAID); Z79.2 Long term (current) use of antibiotics; Z79.899 Other long term (current) drug therapy
CPT/HCPCS: 73140; 96372; 99283; J1885

== ENCOUNTER 2021-10-19 10:04 | Emergency (ER) | payer OTHER ==
[~2021-10-19] VITALS: Ht 167.6 cm; Wt 74.4 kg
[2021-10-19 10:34] VITALS: BP 112/70
--- NOTE | 2021-10-19 10:52 | NUR ---
PT AMB TO ER BED 4
--- NOTE | 2021-10-19 10:57 | NUR ---
C/O OR RIGHT 2ND DIGIT FINGER SWELLING X 5 DAYS. DENIES INJURY OR BUG BITE. TOOK TYLENOL WITHOUT RELIF PMH: DNIES MEDS: DENIES
[2021-10-19] MEDS ORDERED: cefTRIAXone 1,000 MG in LIDOCAINE MPF 1% 2.1 ML IM ONE (11:20)
[2021-10-19] MEDS ORDERED: CEPH-588 PO (11:21)
[2021-10-19] MEDS ORDERED: NAPR-1704 PO (11:21)
[2021-10-19] MEDS ORDERED: cefTRIAXone 1,000 MG VIAL ONE (11:33)
[2021-10-19] MEDS ORDERED: LIDOCAINE MPF 1% 5 ML ONE (11:34)
[2021-10-19 11:58] VITALS: BP 112/70
--- NOTE | 2021-10-19 12:00 | NUR ---
Patient discharged with v/s stable. Written and verbal after care instructions given and explained. Patient alert, oriented and verbalized understanding of instructions. Ambulatory with steady gait. All questions addressed prior to discharge. ID band removed. Patient advised to follow up with PMD. Rx of KEFLEX & NAPROXEN given. Patient educated on indication of medication including possible reaction and side effects. Opportunity to ask questions provided and answered.
== END 2021-10-19 12:00 | disposition home or self-care (01) ==
LOC: MED 10:04
DX: M13.841 Other specified arthritis, right hand (principal); J45.909 Unspecified asthma, uncomplicated; Z79.899 Other long term (current) drug therapy
CPT/HCPCS: 96372; 99283; J0696; J2001

== ENCOUNTER 2021-12-23 11:02 | Emergency (ER) | payer OTHER ==
[~2021-12-23] VITALS: Ht 167.6 cm; Wt 74.8 kg
[~2021-12-23 11:02] MED LIST changes: +CEPH-588 PO; +NAPR-1704 PO
[2021-12-23 11:10] VITALS: BP 122/87
--- NOTE | 2021-12-23 11:12 | NUR ---
AMBULATED TO BED 6
--- NOTE | 2021-12-23 11:38 | NUR ---
Dr. Lin evaluating patient at bedside.
[2021-12-23] MEDS ORDERED: KETOROLAC 30 MG/ML VIAL IM ONE (11:45)
--- NOTE | 2021-12-23 12:05 | NUR ---
56 y/o female bib self with c/o cough and chest discomfort x yesterday. Patient has a non-productive cough. Patient has taken Mucinex at home. Patient has 9/10 intermittent chest discomfort. Patients daugthers tested positive for flu 2 days ago. Denies SOB. Medical History: Asthma NKDA
[2021-12-23 12:28] LABS: BASOPHILS # (AUTO) 0.1 K/uL (0.00-0.22); BASOPHILS % (AUTO) 0.6 % (0.0-2.0); EOSINOPHILS # (AUTO) 0.4 K/uL (0-0.4); EOSINOPHILS % (AUTO) 4.3 % (0.0-4.0); HEMATOCRIT 42.6 % (36-48); HEMOGLOBIN 14.3 g/dL (12.0-16.0); LYMPHOCYTES # (AUTO) 1.3 K/uL (2.5-16.5); LYMPHOCYTES % (AUTO) 14.8 % (20.5-51.1); MEAN CORPUSCULAR HEMOGLOBIN 28 pg (27-31); MEAN CORPUSCULAR HGB CONC 33 g/dL (33-37); MONOCYTES # (AUTO) 0.5 K/uL (0.8-1.0); MONOCYTES % (AUTO) 5.7 % (1.7-9.3); NEUTROPHILS # (AUTO) 6.7 K/uL (1.8-7.7); NEUTROPHILS % (AUTO) 74.6 % (42.2-75.2); PLATELET COUNT (AUTO) 308 K/uL (140-450); RED BLOOD CELL COUNT(AUTO) 5.08 MIL/uL (4.20-5.40); RED CELL DISTRIBUTION WIDTH 14.9 % (11.6-13.7)
[2021-12-23 12:44] LABS: ALBUMIN 3.3 g/dL (3.4-5.0); ANION GAP 15.3 (8-16); ASPARTATE AMINOTRANSFERASE 30 U/L (15-37); CARBON DIOXIDE 24.9 mmol/L (21-32); CHLORIDE 105 mmol/L (98-107); CREATININE 0.6 mg/dL (0.6-1.3); GFR ARICAN-AMERICAN 133 mL/min (>90); GLUCOSE 90 mg/dL (74-106); POTASSIUM 4.2 mmol/L (3.5-5.1); SODIUM SERUM 141 mmol/L (136-145); TOTAL BILIRUBIN 0.2 mg/dL (0.0-1.0); UREA NITROGEN, BLOOD 16 mg/dL (7-18)
[2021-12-23] MEDS ORDERED: SUD30 PO (13:07)
[2021-12-23] MEDS ORDERED: BENZ150C2 PO (13:07)
[2021-12-23] MEDS ORDERED: NAPR-54 PO (13:07)
[2021-12-23] MEDS ORDERED: DEXT118S25 PO (13:07)
--- NOTE | 2021-12-23 13:14 | NUR ---
Dr. Lin re-evaluating patient at bedside.
[2021-12-23 13:30] VITALS: BP 123/76
--- NOTE | 2021-12-23 13:31 | NUR ---
Patient discharged with v/s stable. Written and verbal after care instructions given. Patient alert, oriented and verbalized understanding of instructions. Ambulatory with steady gait. All questions addressed prior to discharge. ID band removed. Patient advised to follow up with PMD. Rx of Benzonatate, Diabetic Tussin DM Liquid, Naproxen and Sudafed given. Opportunity to ask questions provided and answered.
--- NOTE | 2021-12-23 13:32 | NUR ---
The patient's care was reviewed and supervised by Lauren Gallagher RN.
== END 2021-12-23 13:31 | disposition home or self-care (01) ==
LOC: MED 11:02
DX: J06.9 Acute upper respiratory infection, unspecified (principal); M94.0 Chondrocostal junction syndrome [Tietze]; Q28.3 Other malformations of cerebral vessels; R03.0 Elevated blood-pressure reading, without diagnosis of hypertension; Z20.822 Contact with and (suspected) exposure to COVID-19; J45.909 Unspecified asthma, uncomplicated; Z79.1 Long term (current) use of non-steroidal anti-inflammatories (NSAID); Z79.2 Long term (current) use of antibiotics; Z79.899 Other long term (current) drug therapy
CPT/HCPCS: 36415; 71046; 80053; 81002; 81025; 84484; 85025; 87426; 87804; 93005; 96372; 99285; J1885

== ENCOUNTER 2022-05-28 16:55 | Emergency (ER) | payer OTHER ==
[~2022-05-28] VITALS: Ht 167.6 cm; Wt 77.1 kg
[~2022-05-28 16:55] MED LIST changes: +BENZ150C2 PO; +DEXT118S25 PO; +SUD30 PO
[2022-05-28 17:00] VITALS: BP 119/81
--- NOTE | 2022-05-28 17:31 | NUR ---
56 yo/f presents to ED w c/o midsternal chest pain 6/10 pressure non-rad x1 week intermittent which pt relates to her cough and sob worse upon wakening, pt was ssen at [facility] 05/24/22 and was told she had a nodule on her L lung and was recommended ct w contrast. pt denies n/v/d or other symptoms. pmh: asthma allergies: denies
[2022-05-28 18:04] LABS: BASOPHILS # (AUTO) 0.1 K/uL (0.00-0.22); BASOPHILS % (AUTO) 0.8 % (0.0-2.0); EOSINOPHILS # (AUTO) 0.6 K/uL (0-0.4); EOSINOPHILS % (AUTO) 7.2 % (0.0-4.0); HEMATOCRIT 41.3 % (36-48); HEMOGLOBIN 13.7 g/dL (12.0-16.0); LYMPHOCYTES # (AUTO) 3.2 K/uL (2.5-16.5); MEAN CORPUSCULAR HEMOGLOBIN 28 pg (27-31); MEAN CORPUSCULAR HGB CONC 33 g/dL (33-37); MEAN CORPUSCULAR VOLUME 84.7 fL (80-94); MONOCYTES # (AUTO) 0.6 K/uL (0.8-1.0); MONOCYTES % (AUTO) 7.4 % (1.7-9.3); NEUTROPHILS # (AUTO) 3.9 K/uL (1.8-7.7); NEUTROPHILS % (AUTO) 46.6 % (42.2-75.2); PLATELET COUNT (AUTO) 307 K/uL (140-450); RED BLOOD CELL COUNT(AUTO) 4.88 MIL/uL (4.20-5.40); RED CELL DISTRIBUTION WIDTH 14.7 % (11.6-13.7); WHITE BLOOD COUNT (AUTO) 8.3 K/uL (4.8-10.8)
[2022-05-28 18:17] LABS: ALBUMIN 3.6 g/dL (3.4-5.0); ANION GAP 14.6 (8-16); CARBON DIOXIDE 27.2 mmol/L (21-32); CREATININE 0.8 mg/dL (0.6-1.3); POTASSIUM 3.8 mmol/L (3.5-5.1); TOTAL BILIRUBIN 0.2 mg/dL (0.0-1.0)
[2022-05-28] MEDS ORDERED: ALBUTEROL 0.083% 2.5 MG/3 ML NEBU INH ONE (18:55)
[2022-05-28] MEDS ORDERED: predniSONE 20 MG TAB PO ONE (18:55)
[2022-05-28] MEDS ORDERED: ALBU0.0912 INH ×2 (20:21→21:42)
[2022-05-28] MEDS ORDERED: BECL10.62 INH ×2 (20:21→21:42)
[2022-05-28] MEDS ORDERED: PRED20TA5 PO ×2 (20:21→21:42)
[2022-05-28 20:30] VITALS: BP 107/68
--- NOTE | 2022-05-28 20:49 | NUR ---
Patient discharged with v/s stable. Written and verbal after care instructions given and explained. Patient alert, oriented and verbalized understanding of instructions. Ambulatory with steady gait. All questions addressed prior to discharge. ID band removed. Patient advised to follow up with PMD. Rx of albuterol, beclomethasone and prednison given. Patient educated on indication of medication including possible reaction and side effects. Opportunity to ask questions provided and answered.pt left with his belongings.
== END 2022-05-28 20:49 | disposition home or self-care (01) ==
LOC: MED 16:55
DX: J45.901 Unspecified asthma with (acute) exacerbation (principal); Z79.899 Other long term (current) drug therapy
CPT/HCPCS: 36415; 71045; 80053; 83880; 84484; 85025; 93005; 94640; 99285; J7512; J7613; Q0092